=== PATIENT | male | born 1935 | race African-American/Black ===

== ENCOUNTER 2018-06-29 11:46 | Day surgery (SDC) | payer BC ==
--- NOTE | 2018-06-28 14:40 | HP ---
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 He is single. He dialyzes in [place] , Thursday and Thursday, followed by Dr. San. He had a hemodialysis catheter placed at [facility] 3 months ago and it became dislodged and Dr. San saw him and replaced it a week ago. He had a contrast venogram in left arm, revealing cephalic vein to be tortuous, basilic vein to be a possible useful. He is right handed. Right arm was not evaluated. PAST MEDICAL HISTORY: Hypertension, diabetes mellitus. TOBACCO: None. ALCOHOL: None. PAST SURGICAL HISTORY: Some sort of prostate procedure. MEDICATIONS: Colchicine, baby aspirin a day, amlodipine, finasteride, and atorvastatin. FAMILY HISTORY: Noncontributory. REVIEW OF SYSTEMS: Ten point noncontributory. PHYSICAL EXAMINATION: VITAL SIGNS: Weight 163 pounds, blood pressure 137/82, pulse 92, temperature 97.6 degrees. HEENT: Unremarkable. LUNGS: Clear to auscultation. CARDIAC: Regular rate and rhythm without murmur, rub, or gallop. ABDOMEN: Soft, nontender. Right IJ cuffed tunneled hemodialysis catheter in the right chest. Palpa ble radial arteries and ulnar arteries bilaterally. No visibly appreciable. ASSESSMENT AND PLAN: 1. New dialysis patient, last 3 months, has had a catheter last three months and has required replac ement on one occasion. We will plan placement of right arm fistula. Risk of an infection, bleeding, reoperation, possibility of the prosthetic graft discussed. Risk and benefits discussed. Questions answered. 2. Diabetes mellitus. 3. Hypertension. 4. End-stage renal disease, on maintenance dialysis Thursday, Thursday, and Thursday.
[2018-06-29 12:41] LABS: #Eosinphils 0.4 thou/uL (0.0-0.7); #Lymphocytes 2.4 thou/uL (1.20-3.40); #Neutrophils 4.6 thou/uL (1.40-6.50); %Basophils 0.6 % (0.0-1.0); %Eosinophils 4.9 % (0.0-10.0); %Lymphocytes 28.2 % (21.0-51.0); %Monocytes 11.8 % (0.0-10.0); %Neutrophils 54.5 % (42.0-75.0); Hemoglobin 11.5 g/dL (14.0-18.0); Mean Corpuscular HGB CONC 31.8 g/dL (32.0-36.0); Mean Corpuscular Hemoglobin 31.5 pg (27.0-31.0); Mean Corpuscular Volume 99.2 fL (78.0-98.0); Mean Platelet Volume 7.1 fL (7.4-10.4); Platelet Count 253 thou/uL (130-400); RBC Distribution Width 15.3 % (11.5-14.5); Red Blood Cell (RBC) Count 3.65 mill/uL (4.70-6.10); White Blood Cell (WBC) Count 8.4 thou/uL (4.8-10.8)
[2018-06-29 12:59] LABS: Anion Gap 15 mmol/L (10-20); BUN (Urea Nitrogen) 31 mg/dL (8.4-25.7); Calc. Creatinine Clearance 0 mL/min (70-130); Calcium 9.8 mg/dL (7.8-10.44); Carbon Dioxide 25 mmol/L (23-31); Chloride 105 mmol/L (98-107); Estimated GFR-MDRD 16; Glucose 85 mg/dL (83-110); Potassium 4.1 mmol/L (3.5-5.1); Sodium 141 mmol/L (136-145)
[2018-06-29] MEDS ORDERED: Midazolam HCl 2 mg/2 ml Vial ONE (13:22)
[2018-06-29] MEDS ORDERED: Fentanyl 100 MCG/2 ML VIAL ONE ×2 (13:23→13:38)
[2018-06-29] MEDS ORDERED: Bupivacaine HCl 0.5%/Epinephrine 1:200,000/PF 30 ml Vial ONE ×2 (13:35→13:40)
[2018-06-29] MEDS ORDERED: Protamine Sulfate 50 MG/5 ML VIAL ONE (13:35)
[2018-06-29] MEDS ORDERED: Lidocaine 2% PF Inj 2 ML VIAL ONE (13:35)
[2018-06-29] MEDS ORDERED: Heparin 5,000 UNITS/ML VIAL ONE (13:35)
[2018-06-29] MEDS ORDERED: Propofol 1,000 MG/100 ML VIAL IV ONE (13:39)
[2018-06-29] MEDS ORDERED: Phenylephrine HCL 10 MG/ML VIAL ONE (13:46)
--- NOTE | 2018-06-29 15:47 | EKG ---
Test Reason : PREOP Blood Pressure : / mmHG Vent. Rate : 078 BPM Atrial Rate : 078 BPM P-R Int : 148 ms QRS Dur : 080 ms QT Int : 404 ms P-R-T Axes : 026 006 044 degrees QTc Int : 460 ms Normal sinus rhythm with sinus arrhythmia Prolonged QT Abnormal ECG When compared with ECG of 26-JAN-2015 12:43, QT has lengthened Confirmed by STIVEN BRITTON, SrFancisco ([id number]) on 06/29/2018 3:46:38 PM Referred By: VICTOR MANUEL Confirmed By:DR. Fidel SALEEM MD
[2018-06-29] MEDS ORDERED: Heparin 10,000 UNITS/ 10 ML VIAL ONE (16:08)
--- NOTE | 2018-06-30 01:36 | OP ---
DATE OF SERVICE: 06/29/2018 PREOPERATIVE DIAGNOSIS: End-stage renal disease. POSTOPERATIVE DIAGNOSIS: End-stage renal disease. PROCEDURE: Right Orion fistula, 4 mm coronary dilator. SURGEON: Wong Warren M.D. ANESTHESIA: Regional TIVA. PROCEDURE: The patient was taken to the operating room where under regional anesthesia, right upper extremity was prepped with ChloraPrep, draped in routine fashion. The patient had an apparent good c ephalic vein at the wrist, right. Incision was made between the cephalic vein and radial artery ____ _ cephalic vein dissected free. The patient was given 6000 units of heparin intravenously. After ad equate circulation time, the radial artery was clamped proximally and distally. Branches divided bet ween 4-0 silk ties and clips and longitudinal arteriotomy made sharply and elongated with Ambriz sciss ors for a 2.5 to 3 cm anastomosis. The cephalic vein had been ligated on the hand side, spatulated a nd interrogated with coronary dilators, passing coronary dilators from a 2 mm to a 4 mm dilator witho ut obstruction throughout its length. It was flushed with heparinized saline solution and vein spatu lated and end vein to radial artery anastomosis created with continuous suture of 6-0 Prolene. After completion of anastomosis, vascular clamps were released and there was good flow in the fistul a evident by Doppler interrogation outflow. The patient given 25 mg protamine intravenously by Leisa garcía. Good hemostasis noted. Subcutaneous tissues approximated with 3-0 Monocryl, skin with subder mal 4-0 Monocryl and DermaGlue applied.
== END 2018-06-29 16:33 | disposition home or self-care (01) ==
LOC: SDC 11:46
PROVIDERS: ATTEND Specialist
PROC: 031B0ZF Bypass Right Radial Artery to Lower Arm Vein, Open Approach (ICD-10-PCS; principal; 2018-06-29)
DX: I12.0 Hypertensive chronic kidney disease with stage 5 chronic kidney disease or end stage renal disease (principal); E11.22 Type 2 diabetes mellitus with diabetic chronic kidney disease; N18.6 End stage renal disease; Z79.82 Long term (current) use of aspirin; Z79.899 Other long term (current) drug therapy; Z91.030 Bee allergy status
CPT/HCPCS: 80048; 85025; 93005; 93010; J0670; J1644; J2250; J2370; J2704; J2720; J3010

== ENCOUNTER 2018-08-31 14:03 | Day surgery (SDC) | payer MEDICARE, BC ==
[2018-08-30 18:06] VITALS: BMI 24.9
[2018-08-31 09:18] LABS: Hemoglobin 11.8 g/dL (14.0-18.0)
[2018-08-31 09:34] LABS: Anion Gap 19 mmol/L (10-20); Carbon Dioxide 20 mmol/L (23-31); Chloride 106 mmol/L (98-107); Potassium 4.7 mmol/L (3.5-5.1); Sodium 140 mmol/L (136-145)
[2018-08-31] MEDS ORDERED: Bupivacaine HCl 0.5%/Epinephrine 1:200,000/PF 30 ml Vial ONE (14:32)
[2018-08-31] MEDS ORDERED: Heparin 0 ML ONE (14:32)
[2018-08-31] MEDS ORDERED: Sodium Chloride 0.9% 10 ML ONE (14:32)
[2018-08-31] MEDS ORDERED: Lidocaine 2% PF 5 ML VIAL ONE (14:32)
[2018-08-31] MEDS ORDERED: Heparin 10,000 UNITS/1 ML VIAL ONE (14:34)
--- NOTE | 2018-08-31 16:19 | SPC ---
RIGHT UPPER EXTREMITY FISTULOGRAM WITH ULTRASOUND GUIDANCE TO OBTAIN ACCESS: COMPARISON: None. FINDINGS: Unsuccessful right upper extremity fistulogram. Despite multiple successful attempts to access the v enous outflow tract, the 0.018 wire could not be threaded sufficiently to allow a 4 German sheath to be placed over the wire. Multiple attempts were made. There were no immediate post procedural compl ications. TECHNIQUE: Consent obtained to performed a right upper extremity fistulogram. The right arm was prepped and mora ped in a sterile fashion. Lidocaine 1% buffered with sodium bicarbonate was used for local anesthesi a. Under sonographic guidance, a micropuncture needle was used to cannulate the proximal venous outf low tract. There was prompt flash of blood into the hub of the needle. Attempts were made to pass a 0.018 guidewire, which were essentially unsuccessful. A portion of the wire would advance to the di stal forearm; however, a wire would not further advance. Despite multiple attempts, the wire would n ot advance appropriately to allow the 4 German sheath to be placed. Therefore, the study was termina mak. There were no immediate post procedure complications. IMPRESSION: Unsuccessful right upper extremity fistulogram. The results of the study were discussed with Dr. Warren on 08/31/2018 at 11:00 a.m. CODE CR POS: [facility]
[2018-08-31] MEDS ORDERED: PROPOFOL 200 MG/20 ML VIAL ONE (16:27)
[2018-08-31] MEDS ORDERED: Lidocaine 1% PF 5 ML VIAL ONE (16:27)
--- NOTE | 2018-08-31 19:17 | RAD ---
FRONTAL VIEW CHEST: 08/31/18 COMPARISON: 05/30/17. INDICATION: Dialysis catheter placement. FINDINGS: A right sided tunneled vascular catheter is present with tip overlying the right atrium. There is no postprocedure pneumothorax visualized. The left costophrenic sulcus is partially obscured by mild ple ural based density. The cardiomediastinal silhouette is similar appearing. IMPRESSION: 1. Right sided tunneled vascular catheter placement, without evidence of postprocedure pneumotho rax. 2. Mild pleural based density at the inferior left chest with partial obscuration of the left co stophrenic sulcus. This could relate to small volume pleural fluid versus pleural thickening. POS: [facility]
--- NOTE | 2018-09-02 07:30 | OP ---
DATE OF PROCEDURE: 08/31/2018 PREOPERATIVE DIAGNOSES: End-stage renal disease; dysfunctional right arm Orion fistula, status post intervention where it could not be cannulated or wired; dysfunctional hemodialysis catheter, right internal jugular very positionable, unreliable. POSTOPERATIVE DIAGNOSES: End-stage renal disease; dysfunctional right arm Orion fistula, status post intervention where it could not be cannulated or wired; dysfunctional hemodialysis catheter, right internal jugular very positionable, unreliable. PROCEDURES PERFORMED: Removal of old right internal jugular cuffed-tunneled hemodialysis catheter and placement of new right internal jugular hemodialysis catheter, fluoroscopy use. ANESTHESIA: TIVA, local, 0.5% Marcaine with epinephrine 30 mL mixed with xylocaine 10 mL. DESCRIPTION OF PROCEDURE: The patient was taken to the operating room where under intravenous sedation, alcohol prep was used in the exit site of the old hemodialysis catheter, anesthetized with local anesthetic mixture, and catheter and cuff freed from the tunnel and then the neck and chest and cath were prepared with ChloraPrep and draped in routine fashion. Local anesthetic was infiltrated in the skin and subcutaneous tissue about the operative site. Incision was made over the neck incision and the catheter dissected free and pulled up into this wound, clamped, and divided, and the old cath removed and the site reprepped with ChloraPrep. He had a new exit site created with an 11-blade scalpel. A cuffed-tunneled hemodialysis catheter was placed, placing a new cuff beneath the catheter exit site, secured the catheter with 2 interrupted sutures of 3-0 nylon. A Biopatch sterile dressing was applied. Dilator and peel away sheath placed over the J-wire, placed through the catheter into the superior vena cava, removing the old catheter, placing the dilator and peel away sheath, and removing the dilator and J-wire, and then the new catheter placed with a peel away sheath in the superior vena cava, removing the peel away sheath and platysma approximated with 4-0 Monocryl, skin with subdural 4-0 Monocryl and [place] glue applied. Each port aspirated off blood, flushed with saline solution, and heparinized saline solution and heparinized saline solution 1000 units heparin per mL indicating volume per port. Fluoroscopic images revealed good alignment and placement. The patient had a fistulogram this morning revealing that the outflow to the Orion fistula was impaired. Ultrasound vein mapping of both arms would be attempted prior to going home and on 09/07/2018, outpatient new fistula placed probably in his right arm, possibly left arm. Job ID: [id number]
== END 2018-08-31 16:15 | disposition home or self-care (01) ==
LOC: SDC 14:03
PROVIDERS: ATTEND Specialist
PROC: 0J2SXYZ Change Other Device in Head and Neck Subcutaneous Tissue and Fascia, External Approach (ICD-10-PCS; principal; 2018-08-31)
PROC: B51W1ZZ Fluoroscopy of Dialysis Shunt/Fistula using Low Osmolar Contrast (ICD-10-PCS; 2018-08-31)
DX: T82.41XA Breakdown (mechanical) of vascular dialysis catheter, initial encounter (principal); T82.510A Breakdown (mechanical) of surgically created arteriovenous fistula, initial encounter; N18.6 End stage renal disease; Z79.82 Long term (current) use of aspirin; Z79.899 Other long term (current) drug therapy; Z88.2 Allergy status to sulfonamides; Z91.030 Bee allergy status; Z99.2 Dependence on renal dialysis
CPT/HCPCS: 36581; 36901; 71045; 80051; 85014; 85018; C1752; C1769; 36415; J0670; J1642; J1644; J2001; J2704

== ENCOUNTER 2018-09-07 05:53 | Day surgery (SDC) | payer MEDICARE, BC ==
[2018-09-07] MEDS ORDERED: Heparin 10,000 UNITS/ 10 ML VIAL ONE ×3 (07:17→20:36)
[2018-09-07] MEDS ORDERED: Midazolam HCl 2 mg/2 ml Vial ONE (14:49)
[2018-09-07] MEDS ORDERED: Fentanyl 100 MCG/2 ML VIAL ONE ×2 (14:49→17:52)
[2018-09-07] MEDS ORDERED: Bupivacaine HCl 0.5%/Epinephrine 1:200,000/PF 30 ml Vial ONE ×2 (15:41→17:53)
[2018-09-07] MEDS ORDERED: ePHEDrine/0.9% NaCl/PF SYRINGE 50 mg/10 ml ONE (16:06)
[2018-09-07] MEDS ORDERED: Ondansetron PF 4 MG/2 ML Vial ONE (16:06)
[2018-09-07] MEDS ORDERED: PROPOFOL 200 MG/20 ML VIAL ONE (16:06)
[2018-09-07] MEDS ORDERED: Lidocaine 1% PF 5 ML VIAL ONE (16:06)
[2018-09-07] MEDS ORDERED: Heparin 5,000 UNITS/ML VIAL ONE (17:53)
[2018-09-07] MEDS ORDERED: Protamine Sulfate 50 MG/5 ML VIAL ONE (17:53)
[2018-09-07] MEDS ORDERED: Lidocaine 2% PF 5 ML VIAL ONE (17:53)
[2018-09-07] MEDS ORDERED: CEFAZOLIN 2 GM/50 ML BAG ONE (18:08)
--- NOTE | 2018-09-08 03:27 | OP ---
DATE OF PROCEDURE: 09/07/2018 PREOPERATIVE DIAGNOSIS: End-stage renal disease with thrombosed right arm Orion fistula. POSTOPERATIVE DIAGNOSIS: End-stage renal disease with thrombosed right arm Orion fistula. PROCEDURE PERFORMED: Exploration of left forearm. FINDINGS: Veins inadequate, occluded cephalic vein in distal upper arm. Left upper arm PTFE tapered 4T07 graft to brachial artery, which was of excellent caliber above the antecubital fossa to the axillary vein which was of excellent caliber. ANESTHESIA: Regional TIVA. DESCRIPTION OF PROCEDURE: The patient was taken to the operating room where under intravenous sedation and regional anesthesia, left upper extremity was clipped, prepared with ChloraPrep, and draped in routine fashion. Incision was made longitudinally at proximal volar forearm below the antecubital fossa, carried down through skin and subcutaneous tissue. Antecubital vein noted to be of adequate size near the antecubital fossa and then a single branch into an adequate size cephalic vein. The perforating branch was dissected free. Branches were divided between clips and 4-0 silk ties and spatulated over branch points and interrogated with coronary dilators, placing coronary dilators from 2 mm to 2.5 mm with some restriction in the hadoop admin which required elongation and spatulation. I then placed coronary dilators more proximally in the junction distal mid third upper arm. Cephalic vein was occluded. The vein was clipped. Subcutaneous tissue was approximated with 3-0 Monocryl, skin with subdermal 4-0 Monocryl, and [place] glue applied. Incision was made above the antecubital fossa with brachial artery longitudinally, carried through skin, subcutaneous tissue, deep fascia, identifying the brachial artery, it was of excellent caliber. It was dissected free, surrounded with silastic vessel loop. Incision was made in the left axillary longitudinally, carried through skin, subcutaneous tissue, deep fascia, identifying the a very large axillary vein. It was dissected free and controlled proximally and distally with silastic Ambriz loops. The patient was given 6000 units of heparin intravenously after Elidia Wick tunneler was used to tunnel a tapered graft. The 4 mm end of the tapered graft was anastomosed to the brachial artery with continuous suture of 6-0 Prolene after gaining proximal and distal control with vascular clamps in order to make a longitudinal arteriotomy for 2.5 cm anastomosis. Once anastomosis was completed, vascular control was released. There was good flow in the graft and vascular clamp placed across the graft and Surgicel was placed around the arterial anastomosis and attention turned to the axilla. Axillary vein controlled proximally and distally with silastic Ambriz loops and longitudinal venotomy made sharply and elongated with Ambriz scissors for a 3 cm anastomosis using stay sutures of 6-0 Prolene to hold the vein open and graft and tailored accordingly for anastomosis and end graft to side axillary vein anastomosis was created with continuous suture of 6-0 Prolene. After completing the anastomosis, vascular arterial inflow was released. There was good flow. Venous outflow was released and there were good hemostasis in the anastomosis gained with Surgicel and local pressure. The patient was given 25 mg of protamine intravenously. Subcutaneous tissue was approximated with 3-0 Monocryl, skin with subdermal 4-0 Monocryl, and [place] glue applied. Job ID: [id number]
== END 2018-09-07 21:05 | disposition home or self-care (01) ==
LOC: SDC 05:53
PROVIDERS: ATTEND Specialist
PROC: 03180JD Bypass Left Brachial Artery to Upper Arm Vein with Synthetic Substitute, Open Approach (ICD-10-PCS; principal; 2018-09-07)
DX: N18.6 End stage renal disease (principal); T82.868A Thrombosis due to vascular prosthetic devices, implants and grafts, initial encounter; Z88.2 Allergy status to sulfonamides; Z91.030 Bee allergy status; Z79.82 Long term (current) use of aspirin; Z79.899 Other long term (current) drug therapy; Z99.2 Dependence on renal dialysis
CPT/HCPCS: 36830; L8670; J0670; J1644; J2001; J2250; J2405; J2704; J2720; J3010

== ENCOUNTER 2019-09-20 06:34 | Day surgery (SDC) | payer MEDICARE, BC ==
[2019-09-19 12:47] VITALS: BMI 20.7
--- NOTE | 2019-09-20 09:29 | SPC ---
Dialysis graft fistulogram left upper extremity Sonographic guided vascular access left upper extremity HISTORY: Difficulty in access of left upper arm graft. Renal failure FINDINGS: After explaining the procedure and answering all questions, left upper extremity was preppe d and draped in usual sterile fashion. Sterile technique, buffered local anesthesia, sonographic guidance, and a 22-gauge needle were used to carefully access the peripheral portion of the left uppe r arm dialysis graft. 4 Swedish sheath was placed for imaging. Serial imaging showed the left upper arm dialysis graft to be widely patent. Venous outflow to the ax illary vein was patent without significant, small collaterals but no stenosis. Superior vena cava is patent. At the level of the distal humerus, there are 3 small outpouchings of contrast material consistent wi th the bruising from recent dialysis access. Attempts to reflux the arterial anastomosis were unsuccessful because of the vigorous arterial inflow . Sheath was removed and hemostasis obtained using direct pressure. Patient tolerated the procedure wel l and was eventually dismissed in good condition. Fluoroscopy time 0.8 minutes. IMPRESSION: Left upper extremity dialysis graft is widely patent. No evidence of stricture or thrombu s. Small residual defects in the peripheral portion of the graft were seen where there was recent dialys is access and a small amount of oozing of blood.
== END 2019-09-20 08:40 | disposition home or self-care (01) ==
LOC: SPEC 06:34
PROVIDERS: ATTEND Internal Medicine Nephrology
PROC: B51W1ZZ Fluoroscopy of Dialysis Shunt/Fistula using Low Osmolar Contrast (ICD-10-PCS; principal; 2019-09-20)
DX: I12.0 Hypertensive chronic kidney disease with stage 5 chronic kidney disease or end stage renal disease (principal); E11.22 Type 2 diabetes mellitus with diabetic chronic kidney disease; N18.6 End stage renal disease; E78.5 Hyperlipidemia, unspecified; K21.9 Gastro-esophageal reflux disease without esophagitis; M10.9 Gout, unspecified; Z79.899 Other long term (current) drug therapy; Z88.2 Allergy status to sulfonamides; Z91.030 Bee allergy status; Z99.2 Dependence on renal dialysis
CPT/HCPCS: 36901

== ENCOUNTER 2021-11-19 14:30 | Inpatient (IN) | payer MEDICARE, BC ==
[2021-11-19 16:25] LABS: #Eosinphils 0.4 thou/uL (0.0-0.7); #Lymphocytes 1.5 thou/uL (1.20-3.40); #Monocytes 0.9 thou/uL (0.11-0.59); #Neutrophils 6.8 thou/uL (1.40-6.50); %Basophils 0.5 % (0.0-1.0); %Eosinophils 3.7 % (0.0-10.0); %Lymphocytes 15.6 % (21.0-51.0); %Monocytes 9.1 % (0.0-10.0); %Neutrophils 71.1 % (42.0-75.0); Hemoglobin 12.4 g/dL (14.0-18.0); Mean Corpuscular HGB CONC 31.9 g/dL (32.0-36.0); Mean Corpuscular Hemoglobin 31.8 pg (27.0-31.0); Mean Corpuscular Volume 99.6 fL (78.0-98.0); Platelet Count 204 thou/uL (130-400); RBC Distribution Width 15.9 % (11.5-14.5); White Blood Cell (WBC) Count 9.6 thou/uL (4.8-10.8)
[2021-11-19 16:37] LABS: Actual Bicarbonate (HCO3v) 27 mEq/L (22-28); Analyzer IN Cardio ER; Base Excess -0.3 mEq/L (-2.0 to +3.0); Chloride (VBG) 102 mmol/L (98-106); Hemoglobin (Hb) 13.5 g/dL (12.6-17.4); Potassium (VBG) 3.71 mmol/L (3.70-5.30); Sodium 140.9 mmol/L (133-146); pH (venous) 7.32 (7.32-7.43)
[2021-11-19 16:46] LABS: ALT (SGPT) 17 U/L (8-55); AST (SGOT) 23 U/L (5-34); Albumin 4.2 g/dL (3.4-4.8); Alkaline Phosphatase 50 U/L (40-110); Anion Gap 16 mmol/L (10-20); BUN (Urea Nitrogen) 24 mg/dL (8.4-25.7); Bilirubin, Total 0.4 mg/dL (0.2-1.2); Calc. Creatinine Clearance 0 mL/min (70-130); Calcium 10.7 mg/dL (7.8-10.44); Carbon Dioxide 25 mmol/L (23-31); Chloride 102 mmol/L (98-107); Globulin 3.2 g/dL (2.4-3.5); Glucose 107 mg/dL (83-110); Lipase 34 U/L (8-78); Magnesium 2.3 mg/dL (1.6-2.6); Potassium 3.7 mmol/L (3.5-5.1); Protein, Total 7.4 g/dL (5.8-8.1); Sodium 139 mmol/L (136-145)
[2021-11-19 17:32] LABS: CKMB 1.3 ng/mL (0-6.6)
[2021-11-19 18:54] LABS: Bacteria/HPF None Seen HPF (None Seen); Bilirubin Negative (Negative); Blood, Urine Trace (Negative); Clarity Clear (Clear); Glucose, Urine (Dipstick) 70 mg/dL (Negative); Ketone, Urine Negative (Negative); Leukocyte Negative Leu/uL (Negative); Nitrite Negative (Negative); Protein, Urine (Dipstick) 300 mg/dL (Neg-Trace); RBC/HPF 0-3 HPF (0-3); Specific Gravity, Urine 1.012 (1.002-1.036); Squamous Epithelial 0-3 HPF (0-3); Urobilinogen Normal mg/dL (Less than 2); WBC/HPF 0-3 HPF (0-3)
[2021-11-19 19:36] LABS: SARS-CoV-2 NAA Rapid Test Not Detected (NotDetected)
[2021-11-19] MEDS ORDERED: hydrALAZINE 20 MG/ML VIAL ONE (19:49)
[2021-11-19] MEDS ORDERED: Nitroglycerin 2% Ointment 1 INCH/1 GM Packet ONE (19:49)
[2021-11-19] MEDS ORDERED: Acetaminophen 650 MG Suppository PR PRN (20:50)
[2021-11-19] MEDS ORDERED: Ondansetron PF 4 MG/2 ML Vial ONE (21:12)
[2021-11-19 21:27] LABS: Phosphorus 4.5 mg/dL (2.3-4.7)
[2021-11-19] MEDS: Heparin 5,000 UNITS/ML VIAL SC SCH (23:00)
[2021-11-19] MEDS: hydrALAZINE 20 MG/ML VIAL SLOW IVP PRN (23:13)
[2021-11-20] MEDS ORDERED: Ondansetron ODT 4 MG TAB ONE (00:42)
[2021-11-20] MEDS: Ondansetron ODT 4 MG TAB PO PRN ×2 (00:43→15:38)
[2021-11-20 06:16] LABS: #Lymphocytes 1.3 thou/uL (1.20-3.40); #Monocytes 0.8 thou/uL (0.11-0.59); #Neutrophils 6.8 thou/uL (1.40-6.50); %Eosinophils 0.2 % (0.0-10.0); %Neutrophils 76.8 % (42.0-75.0); Hemoglobin 12.1 g/dL (14.0-18.0); Mean Corpuscular HGB CONC 32.2 g/dL (32.0-36.0); Mean Corpuscular Hemoglobin 31.9 pg (27.0-31.0); Mean Corpuscular Volume 98.9 fL (78.0-98.0); Mean Platelet Volume 8.3 fL (7.4-10.4); Platelet Count 208 thou/uL (130-400); RBC Distribution Width 15.9 % (11.5-14.5); Red Blood Cell (RBC) Count 3.81 mill/uL (4.70-6.10); White Blood Cell (WBC) Count 8.9 thou/uL (4.8-10.8)
[2021-11-20 06:38] LABS: Anion Gap 14 mmol/L (10-20); BUN (Urea Nitrogen) 29 mg/dL (8.4-25.7); Calc. Creatinine Clearance 0 mL/min (70-130); Calcium 10.7 mg/dL (7.8-10.44); Carbon Dioxide 26 mmol/L (23-31); Chloride 104 mmol/L (98-107); Glucose 100 mg/dL (83-110); Sodium 140 mmol/L (136-145)
[2021-11-20] MEDS: hydrALAZINE 20 MG/ML VIAL SLOW IVP PRN (06:53)
[2021-11-20] MEDS ORDERED: Non-Formulary Item 1 EACH (Pantoprazole Sodium [Protonix] 20 MG Tablet.Dr) PO SCH (09:00)
[2021-11-20] MEDS ORDERED: Amlodipine 10 MG TAB PO SCH (09:00)
[2021-11-20 09:53] LABS: Vitamin D, 25 Hydroxy 21.1 ng/ml (> 30.0)
[2021-11-20 09:58] LABS: Free T4 (Free Thyroxine) 1.18 ng/dL (0.70-1.48); Thyroid Stimulating Hormone 1.1481 uIU/mL (0.35-4.94)
[2021-11-20 10:00] LABS: Vitamin B12 Greater than 2000 pg/mL (211-911)
[2021-11-20] MEDS ORDERED: Acetaminophen 325 MG TAB ONE (10:24)
[2021-11-20] MEDS ORDERED: Amlodipine 5 MG TAB ONE (10:24)
[2021-11-20] MEDS: Heparin 5,000 UNITS/ML VIAL SC SCH ×3 (10:54→21:33)
[2021-11-20] MEDS: Amlodipine 5 MG TAB PO SCH (10:55)
[2021-11-20] MEDS: Atorvastatin Calcium 40 MG TAB PO SCH (10:55)
[2021-11-20] MEDS: Acetaminophen 325 MG TAB PO PRN ×2 (10:55→21:33)
[2021-11-20] MEDS: Finasteride 5 MG TAB PO SCH (10:55)
[2021-11-20 13:45] LABS: HBSAg Index 0.28 S/CO (0-0.99); Hep B Surf Ag Non-Reactive S/CO (NonReactive)
[2021-11-20 13:49] LABS: HBSAB Concentration 134.87 mIU/mL; Hep B Surf AB Reactive (NonReactive)
[2021-11-20 14:14] VITALS: BMI 20.4
[2021-11-20] MEDS: Ondansetron PF 4 MG/2 ML Vial IVP PRN (14:31)
[2021-11-21] MEDS: hydrALAZINE 20 MG/ML VIAL SLOW IVP PRN ×2 (00:19→09:05)
[2021-11-21] MEDS: Amlodipine 5 MG TAB PO SCH (09:03)
[2021-11-21] MEDS: Atorvastatin Calcium 40 MG TAB PO SCH (09:04)
[2021-11-21] MEDS: Finasteride 5 MG TAB PO SCH (09:04)
[2021-11-21] MEDS: Labetalol HCl 100 MG TAB PO SCH ×3 (09:04→20:47)
[2021-11-21] MEDS: Heparin 5,000 UNITS/ML VIAL SC SCH ×4 (09:05→21:26)
[2021-11-21] MEDS: Ondansetron ODT 4 MG TAB PO PRN (09:26)
[2021-11-21] MEDS: Guaifenesin DM 100-10/5 ML UDCUP PO PRN (12:50)
[2021-11-21] MEDS: Cholecalciferol 1,000 UNITS (25 MCG) TAB PO SCH (20:47)
[2021-11-22 04:49] LABS: ALT (SGPT) 11 U/L (8-55); AST (SGOT) 21 U/L (5-34); Albumin 3.5 g/dL (3.4-4.8); Alkaline Phosphatase 41 U/L (40-110); Anion Gap 15 mmol/L (10-20); BUN (Urea Nitrogen) 30 mg/dL (8.4-25.7); Bilirubin, Total 0.4 mg/dL (0.2-1.2); Calc. Creatinine Clearance 7 mL/min (70-130); Carbon Dioxide 27 mmol/L (23-31); Chloride 100 mmol/L (98-107); Globulin 2.5 g/dL (2.4-3.5); Glucose 90 mg/dL (83-110); Magnesium 2.2 mg/dL (1.6-2.6); Phosphorus 5.7 mg/dL (2.3-4.7); Sodium 138 mmol/L (136-145)
[2021-11-22] MEDS: Atorvastatin Calcium 40 MG TAB PO SCH (08:33)
[2021-11-22] MEDS: Heparin 5,000 UNITS/ML VIAL SC SCH ×3 (08:33→20:57)
[2021-11-22] MEDS: Finasteride 5 MG TAB PO SCH (08:34)
[2021-11-22] MEDS: Labetalol HCl 100 MG TAB PO SCH ×3 (08:34→20:53)
[2021-11-22] MEDS: Amlodipine 5 MG TAB PO SCH (08:35)
[2021-11-22] MEDS: Ascorbic Acid 500 mg Chewable Tablet PO SCH (08:38)
[2021-11-22] MEDS: Acetaminophen 325 MG TAB PO PRN (15:57)
[2021-11-22] MEDS: Guaifenesin DM 100-10/5 ML UDCUP PO PRN (15:58)
[2021-11-22] MEDS: Cholecalciferol 1,000 UNITS (25 MCG) TAB PO SCH (20:53)
[2021-11-23 04:37] LABS: ALT (SGPT) 11 U/L (8-55); AST (SGOT) 28 U/L (5-34); Albumin 3.4 g/dL (3.4-4.8); Alkaline Phosphatase 43 U/L (40-110); Anion Gap 14 mmol/L (10-20); BUN (Urea Nitrogen) 19 mg/dL (8.4-25.7); Bilirubin, Total 0.4 mg/dL (0.2-1.2); Calc. Creatinine Clearance 9 mL/min (70-130); Calcium 9.5 mg/dL (7.8-10.44); Carbon Dioxide 27 mmol/L (23-31); Chloride 99 mmol/L (98-107); Globulin 2.7 g/dL (2.4-3.5); Glucose 95 mg/dL (83-110); Protein, Total 6.1 g/dL (5.8-8.1); Sodium 136 mmol/L (136-145)
[2021-11-23] MEDS: Ascorbic Acid 500 mg Chewable Tablet PO SCH (08:31)
[2021-11-23] MEDS: Guaifenesin DM 100-10/5 ML UDCUP PO PRN (08:31)
[2021-11-23] MEDS: Finasteride 5 MG TAB PO SCH (08:31)
[2021-11-23] MEDS: Atorvastatin Calcium 40 MG TAB PO SCH (08:31)
[2021-11-23] MEDS: Amlodipine 5 MG TAB PO SCH (08:31)
[2021-11-23] MEDS: Labetalol HCl 100 MG TAB PO SCH ×3 (08:32→20:44)
[2021-11-23] MEDS: Heparin 5,000 UNITS/ML VIAL SC SCH ×3 (08:32→20:48)
[2021-11-23] MEDS: Cholecalciferol 1,000 UNITS (25 MCG) TAB PO SCH (20:47)
[2021-11-24 05:12] LABS: ALT (SGPT) 10 U/L (8-55); AST (SGOT) 23 U/L (5-34); Albumin 3.4 g/dL (3.4-4.8); Alkaline Phosphatase 41 U/L (40-110); Anion Gap 18 mmol/L (10-20); BUN (Urea Nitrogen) 30 mg/dL (8.4-25.7); Bilirubin, Total 0.4 mg/dL (0.2-1.2); Calc. Creatinine Clearance 6 mL/min (70-130); Calcium 9.5 mg/dL (7.8-10.44); Carbon Dioxide 25 mmol/L (23-31); Chloride 98 mmol/L (98-107); Globulin 2.6 g/dL (2.4-3.5); Glucose 96 mg/dL (83-110); Potassium 3.9 mmol/L (3.5-5.1); Sodium 137 mmol/L (136-145)
[2021-11-24 06:48] LABS: #Eosinphils 0.5 thou/uL (0.0-0.7); #Monocytes 1.1 thou/uL (0.11-0.59); %Basophils 0.1 % (0.0-1.0); %Eosinophils 5.9 % (0.0-10.0); %Lymphocytes 23.4 % (21.0-51.0); %Monocytes 12.3 % (0.0-10.0); %Neutrophils 58.2 % (42.0-75.0); Hemoglobin 10.9 g/dL (14.0-18.0); Mean Corpuscular HGB CONC 31.2 g/dL (32.0-36.0); Mean Corpuscular Hemoglobin 31.1 pg (27.0-31.0); Mean Platelet Volume 8.7 fL (7.4-10.4); Platelet Count 187 thou/uL (130-400); RBC Distribution Width 15.8 % (11.5-14.5); White Blood Cell (WBC) Count 8.7 thou/uL (4.8-10.8)
[2021-11-24] MEDS: Amlodipine 5 MG TAB PO SCH (08:47)
[2021-11-24] MEDS: Heparin 5,000 UNITS/ML VIAL SC SCH ×3 (08:47→21:12)
[2021-11-24] MEDS: Guaifenesin DM 100-10/5 ML UDCUP PO PRN (08:47)
[2021-11-24] MEDS: Finasteride 5 MG TAB PO SCH (08:47)
[2021-11-24] MEDS: Labetalol HCl 100 MG TAB PO SCH ×3 (08:47→21:09)
[2021-11-24] MEDS: Atorvastatin Calcium 40 MG TAB PO SCH (08:47)
[2021-11-24] MEDS: Ascorbic Acid 500 mg Chewable Tablet PO SCH (08:47)
[2021-11-24] MEDS: Acetaminophen 325 MG TAB PO PRN (14:20)
[2021-11-24] MEDS: Cholecalciferol 1,000 UNITS (25 MCG) TAB PO SCH (21:09)
[2021-11-25] MEDS: Guaifenesin DM 100-10/5 ML UDCUP PO PRN (05:09)
[2021-11-25 05:20] LABS: #Basophils 0.1 thou/uL (0.0-0.2); #Eosinphils 0.6 thou/uL (0.0-0.7); #Lymphocytes 2.1 thou/uL (1.20-3.40); #Monocytes 1.1 thou/uL (0.11-0.59); #Neutrophils 5.3 thou/uL (1.40-6.50); %Basophils 1.1 % (0.0-1.0); %Eosinophils 6.8 % (0.0-10.0); %Lymphocytes 22.3 % (21.0-51.0); %Monocytes 11.7 % (0.0-10.0); %Neutrophils 58.1 % (42.0-75.0); Hemoglobin 11.3 g/dL (14.0-18.0); Mean Corpuscular HGB CONC 31.4 g/dL (32.0-36.0); Mean Corpuscular Hemoglobin 32.1 pg (27.0-31.0); Mean Platelet Volume 8.1 fL (7.4-10.4); Platelet Count 189 thou/uL (130-400); RBC Distribution Width 15.9 % (11.5-14.5); Red Blood Cell (RBC) Count 3.53 mill/uL (4.70-6.10); White Blood Cell (WBC) Count 9.2 thou/uL (4.8-10.8)
[2021-11-25 05:47] LABS: ALT (SGPT) 10 U/L (8-55); AST (SGOT) 24 U/L (5-34); Albumin 3.4 g/dL (3.4-4.8); Alkaline Phosphatase 46 U/L (40-110); Anion Gap 19 mmol/L (10-20); BUN (Urea Nitrogen) 42 mg/dL (8.4-25.7); Bilirubin, Total 0.4 mg/dL (0.2-1.2); Calc. Creatinine Clearance 5 mL/min (70-130); Calcium 9.8 mg/dL (7.8-10.44); Carbon Dioxide 22 mmol/L (23-31); Chloride 99 mmol/L (98-107); Globulin 2.8 g/dL (2.4-3.5); Glucose 105 mg/dL (83-110); Iron 120 ug/dL (65-175); Iron Binding Capacity, Total 139 mcg/dL (261-462); Potassium 4.2 mmol/L (3.5-5.1); Protein, Total 6.2 g/dL (5.8-8.1); Sodium 136 mmol/L (136-145)
[2021-11-25 06:04] LABS: Iron 121 ug/dL (65-175); Iron Binding Capacity, Total 136 mcg/dL (261-462)
[2021-11-25] MEDS: Labetalol HCl 100 MG TAB PO SCH ×3 (08:50→20:47)
[2021-11-25] MEDS: Ascorbic Acid 500 mg Chewable Tablet PO SCH (08:50)
[2021-11-25] MEDS: Atorvastatin Calcium 40 MG TAB PO SCH (13:45)
[2021-11-25] MEDS: Heparin 5,000 UNITS/ML VIAL SC SCH ×3 (13:45→20:47)
[2021-11-25] MEDS: Amlodipine 5 MG TAB PO SCH (14:22)
[2021-11-25] MEDS: Finasteride 5 MG TAB PO SCH (14:25)
[2021-11-25] MEDS: Acetaminophen 325 MG TAB PO PRN (20:47)
[2021-11-25] MEDS: Cholecalciferol 1,000 UNITS (25 MCG) TAB PO SCH (20:47)
[2021-11-26] MEDS: Ondansetron ODT 4 MG TAB PO PRN (00:42)
[2021-11-26 06:57] LABS: #Eosinphils 0.5 thou/uL (0.0-0.7); #Lymphocytes 2.2 thou/uL (1.20-3.40); #Monocytes 0.9 thou/uL (0.11-0.59); #Neutrophils 5.2 thou/uL (1.40-6.50); %Basophils 0.5 % (0.0-1.0); %Eosinophils 5.4 % (0.0-10.0); %Lymphocytes 24.8 % (21.0-51.0); %Monocytes 10.6 % (0.0-10.0); %Neutrophils 58.8 % (42.0-75.0); Hemoglobin 11.4 g/dL (14.0-18.0); Mean Corpuscular Hemoglobin 32.1 pg (27.0-31.0); Platelet Count 192 thou/uL (130-400); RBC Distribution Width 15.7 % (11.5-14.5); Red Blood Cell (RBC) Count 3.54 mill/uL (4.70-6.10); White Blood Cell (WBC) Count 8.9 thou/uL (4.8-10.8)
[2021-11-26 07:13] LABS: Anion Gap 16 mmol/L (10-20); BUN (Urea Nitrogen) 29 mg/dL (8.4-25.7); Calc. Creatinine Clearance 9 mL/min (70-130); Calcium 9.9 mg/dL (7.8-10.44); Carbon Dioxide 28 mmol/L (23-31); Chloride 96 mmol/L (98-107); Glucose 92 mg/dL (83-110); Potassium 3.7 mmol/L (3.5-5.1); Sodium 136 mmol/L (136-145)
[2021-11-26] MEDS: Atorvastatin Calcium 40 MG TAB PO SCH (09:41)
[2021-11-26] MEDS: Finasteride 5 MG TAB PO SCH (09:41)
[2021-11-26] MEDS: Ascorbic Acid 500 mg Chewable Tablet PO SCH (09:41)
[2021-11-26] MEDS: Labetalol HCl 100 MG TAB PO SCH ×3 (09:41→21:45)
[2021-11-26] MEDS: Folic Acid 1 MG TAB PO SCH (09:42)
[2021-11-26] MEDS: Guaifenesin DM 100-10/5 ML UDCUP PO PRN ×2 (09:42→14:05)
[2021-11-26] MEDS: Heparin 5,000 UNITS/ML VIAL SC SCH ×3 (09:43→21:43)
[2021-11-26] MEDS: Amlodipine 5 MG TAB PO SCH (09:43)
[2021-11-26 11:47] LABS: SARS-CoV-2 PCR by NAA Not Detected (NotDetected)
[2021-11-26] MEDS: Cholecalciferol 1,000 UNITS (25 MCG) TAB PO SCH (21:43)
[2021-11-27 05:07] LABS: #Eosinphils 0.5 thou/uL (0.0-0.7); #Lymphocytes 2.4 thou/uL (1.20-3.40); #Neutrophils 5.8 thou/uL (1.40-6.50); %Basophils 0.1 % (0.0-1.0); %Lymphocytes 24.7 % (21.0-51.0); %Monocytes 10.6 % (0.0-10.0); %Neutrophils 59.6 % (42.0-75.0); Hemoglobin 10.7 g/dL (14.0-18.0); Mean Corpuscular HGB CONC 31.5 g/dL (32.0-36.0); Mean Corpuscular Hemoglobin 31.4 pg (27.0-31.0); Mean Corpuscular Volume 99.6 fL (78.0-98.0); Mean Platelet Volume 7.8 fL (7.4-10.4); Platelet Count 192 thou/uL (130-400); RBC Distribution Width 15.8 % (11.5-14.5); White Blood Cell (WBC) Count 9.8 thou/uL (4.8-10.8)
[2021-11-27 05:29] LABS: Anion Gap 17 mmol/L (10-20); BUN (Urea Nitrogen) 44 mg/dL (8.4-25.7); Calc. Creatinine Clearance 6 mL/min (70-130); Carbon Dioxide 27 mmol/L (23-31); Chloride 96 mmol/L (98-107); Glucose 90 mg/dL (83-110); Sodium 136 mmol/L (136-145)
[2021-11-27] MEDS: Amlodipine 5 MG TAB PO SCH (09:06)
[2021-11-27] MEDS: Finasteride 5 MG TAB PO SCH (09:07)
[2021-11-27] MEDS: Ascorbic Acid 500 mg Chewable Tablet PO SCH (09:07)
[2021-11-27] MEDS: Atorvastatin Calcium 40 MG TAB PO SCH (09:07)
[2021-11-27] MEDS: Folic Acid 1 MG TAB PO SCH (09:07)
[2021-11-27] MEDS: Heparin 5,000 UNITS/ML VIAL SC SCH ×3 (09:07→20:20)
[2021-11-27] MEDS: Labetalol HCl 100 MG TAB PO SCH ×3 (09:07→20:21)
[2021-11-27] MEDS: Guaifenesin DM 100-10/5 ML UDCUP PO PRN (16:40)
[2021-11-27] MEDS: Cholecalciferol 1,000 UNITS (25 MCG) TAB PO SCH (20:21)
[2021-11-28 05:07] LABS: Anion Gap 16 mmol/L (10-20); BUN (Urea Nitrogen) 24 mg/dL (8.4-25.7); Calc. Creatinine Clearance 10 mL/min (70-130); Calcium 9.5 mg/dL (7.8-10.44); Carbon Dioxide 24 mmol/L (23-31); Chloride 101 mmol/L (98-107); Glucose 103 mg/dL (83-110); Sodium 137 mmol/L (136-145)
[2021-11-28] MEDS: Ascorbic Acid 500 mg Chewable Tablet PO SCH (09:07)
[2021-11-28] MEDS: Amlodipine 5 MG TAB PO SCH (09:07)
[2021-11-28] MEDS: Finasteride 5 MG TAB PO SCH (09:08)
[2021-11-28] MEDS: Atorvastatin Calcium 40 MG TAB PO SCH (09:08)
[2021-11-28] MEDS: Folic Acid 1 MG TAB PO SCH (09:08)
[2021-11-28] MEDS: Heparin 5,000 UNITS/ML VIAL SC SCH ×3 (09:08→19:45)
[2021-11-28] MEDS: Labetalol HCl 100 MG TAB PO SCH ×3 (09:09→19:45)
[2021-11-28] MEDS: Cholecalciferol 1,000 UNITS (25 MCG) TAB PO SCH (19:45)
[2021-11-28] MEDS ORDERED: traMADol HCl 50 MG TAB PO SCH (20:15)
[2021-11-29] MEDS: Ascorbic Acid 500 mg Chewable Tablet PO SCH (08:36)
[2021-11-29] MEDS: Amlodipine 5 MG TAB PO SCH (08:37)
[2021-11-29] MEDS: Finasteride 5 MG TAB PO SCH (08:37)
[2021-11-29] MEDS: Labetalol HCl 100 MG TAB PO SCH ×3 (08:37→20:24)
[2021-11-29] MEDS: Folic Acid 1 MG TAB PO SCH (08:37)
[2021-11-29] MEDS: Atorvastatin Calcium 40 MG TAB PO SCH (08:37)
[2021-11-29] MEDS: Heparin 5,000 UNITS/ML VIAL SC SCH ×3 (08:37→20:25)
[2021-11-29] MEDS: Acetaminophen 325 MG TAB PO PRN (12:51)
[2021-11-29] MEDS: Cholecalciferol 1,000 UNITS (25 MCG) TAB PO SCH (20:25)
[2021-11-29] MEDS: Guaifenesin DM 100-10/5 ML UDCUP PO PRN (21:44)
[2021-11-30] MEDS: Ondansetron PF 4 MG/2 ML Vial IVP PRN (01:19)
[2021-11-30 05:17] LABS: Anion Gap 19 mmol/L (10-20); BUN (Urea Nitrogen) 57 mg/dL (8.4-25.7); Calc. Creatinine Clearance 6 mL/min (70-130); Calcium 9.9 mg/dL (7.8-10.44); Carbon Dioxide 23 mmol/L (23-31); Chloride 99 mmol/L (98-107); Glucose 89 mg/dL (83-110); Potassium 4.3 mmol/L (3.5-5.1); Sodium 137 mmol/L (136-145)
[2021-11-30] MEDS: Ascorbic Acid 500 mg Chewable Tablet PO SCH (08:32)
[2021-11-30] MEDS: Finasteride 5 MG TAB PO SCH (08:32)
[2021-11-30] MEDS: Folic Acid 1 MG TAB PO SCH ×2 (08:32→19:52)
[2021-11-30] MEDS: Acetaminophen 325 MG TAB PO PRN ×2 (08:33→14:08)
[2021-11-30] MEDS: Amlodipine 5 MG TAB PO SCH (08:33)
[2021-11-30] MEDS: Atorvastatin Calcium 40 MG TAB PO SCH (08:33)
[2021-11-30] MEDS: Labetalol HCl 100 MG TAB PO SCH (08:34)
[2021-11-30 09:53] LABS: Hemoglobin 8.9 g/dL (14.0-18.0); Platelet Count 206 thou/uL (130-400)
[2021-11-30 10:06] LABS: INR-International Normal Ratio 0.9; PTT 53.1 sec (22.9-36.1); Prothrombin Time 12.5 sec (12.0-14.7)
[2021-11-30] MEDS: Ondansetron ODT 4 MG TAB PO PRN (14:09)
[2021-11-30] MEDS ORDERED: Labetalol HCl 100 MG TAB PO SCH (15:00)
[2021-11-30] MEDS: Cholecalciferol 1,000 UNITS (25 MCG) TAB PO SCH (19:51)
[2021-11-30] MEDS: Docusate 100 MG CAP PO SCH (19:52)
[2021-11-30] MEDS: Guaifenesin DM 100-10/5 ML UDCUP PO PRN (22:47)
[2021-12-01 05:13] LABS: Hemoglobin 8.8 g/dL (14.0-18.0); Platelet Count 206 thou/uL (130-400)
[2021-12-01 05:30] LABS: Anion Gap 13 mmol/L (10-20); BUN (Urea Nitrogen) 33 mg/dL (8.4-25.7); Calc. Creatinine Clearance 9 mL/min (70-130); Calcium 9.6 mg/dL (7.8-10.44); Carbon Dioxide 28 mmol/L (23-31); Chloride 98 mmol/L (98-107); Glucose 86 mg/dL (83-110); Potassium 3.7 mmol/L (3.5-5.1); Sodium 135 mmol/L (136-145)
[2021-12-01] MEDS: Folic Acid 1 MG TAB PO SCH ×2 (08:32→20:45)
[2021-12-01] MEDS: Atorvastatin Calcium 40 MG TAB PO SCH (08:33)
[2021-12-01] MEDS: Finasteride 5 MG TAB PO SCH (08:34)
[2021-12-01] MEDS: Ascorbic Acid 500 mg Chewable Tablet PO SCH (08:35)
[2021-12-01] MEDS ORDERED: Amlodipine 5 MG TAB PO SCH (09:00)
[2021-12-01] MEDS: Acetaminophen 325 MG TAB PO PRN ×2 (11:23→18:24)
[2021-12-01] MEDS: Ondansetron ODT 4 MG TAB PO PRN (18:25)
[2021-12-01] MEDS ORDERED: EPOETIN ALFA-EPBX (ESRD) 3,000 UNIT/ML VIAL SC SCH (19:45)
[2021-12-01] MEDS ORDERED: EPOETIN ALFA-EPBX (ESRD) 2,000 UNIT/ML VIAL SC SCH (19:45)
[2021-12-01] MEDS ORDERED: Epoetin (ESRD) 20,000 UNITS/ML SC SCH (19:45)
[2021-12-01] MEDS: Cholecalciferol 1,000 UNITS (25 MCG) TAB PO SCH (20:45)
[2021-12-01] MEDS: Docusate 100 MG CAP PO SCH (20:46)
[2021-12-01] MEDS: Guaifenesin DM 100-10/5 ML UDCUP PO PRN (20:51)
[2021-12-02 04:57] LABS: Hemoglobin 8.8 g/dL (14.0-18.0); Platelet Count 210 thou/uL (130-400)
[2021-12-02 08:47] VITALS: TEMP 97
[2021-12-02] MEDS: Ascorbic Acid 500 mg Chewable Tablet PO SCH (09:08)
[2021-12-02] MEDS: Folic Acid 1 MG TAB PO SCH (09:08)
[2021-12-02] MEDS: Finasteride 5 MG TAB PO SCH (09:08)
[2021-12-02] MEDS: Atorvastatin Calcium 40 MG TAB PO SCH (09:08)
[2021-12-02 12:16] VITALS: BP 168/78
[2021-12-02] MEDS: Guaifenesin DM 100-10/5 ML UDCUP PO PRN (13:25)
[2021-12-08] MEDS ORDERED: EPOETIN ALFA-EPBX (ESRD) 3,000 UNIT/ML VIAL SC SCH (09:00)
[2021-12-08] MEDS ORDERED: EPOETIN ALFA-EPBX (ESRD) 2,000 UNIT/ML VIAL SC SCH (09:00)
== END 2021-12-02 17:10 | DRG 304 ==
LOC: ERS 14:30 → ERHOLD 19:50 → 2NO 20:03 → OBSVTOIN 11-20 16:57 → MSONC 11-24 12:24
PROVIDERS: ADMIT Student in an Organized Health Care Education/Training Program; ATTEND Internal Medicine
DX: I16.0 Hypertensive urgency (principal); N18.6 End stage renal disease; I50.33 Acute on chronic diastolic (congestive) heart failure; G93.40 Encephalopathy, unspecified; D62 Acute posthemorrhagic anemia; I13.2 Hypertensive heart and chronic kidney disease with heart failure and with stage 5 chronic kidney disease, or end stage renal disease; Z20.822 Contact with and (suspected) exposure to COVID-19; D63.1 Anemia in chronic kidney disease; K46.9 Unspecified abdominal hernia without obstruction or gangrene; E55.9 Vitamin D deficiency, unspecified; R41.0 Disorientation, unspecified; M79.81 Nontraumatic hematoma of soft tissue; E53.8 Deficiency of other specified B group vitamins; K57.90 Diverticulosis of intestine, part unspecified, without perforation or abscess without bleeding; E78.5 Hyperlipidemia, unspecified; N40.0 Benign prostatic hyperplasia without lower urinary tract symptoms; K40.90 Unilateral inguinal hernia, without obstruction or gangrene, not specified as recurrent; N28.1 Cyst of kidney, acquired; K21.9 Gastro-esophageal reflux disease without esophagitis; Z91.030 Bee allergy status; Z79.899 Other long term (current) drug therapy; Z90.79 Acquired absence of other genital organ(s); Z79.82 Long term (current) use of aspirin; Z99.2 Dependence on renal dialysis; Z87.442 Personal history of urinary calculi; Z88.2 Allergy status to sulfonamides; Z91.81 History of falling
CPT/HCPCS: 36415; 36416; 70450; 71045; 74176; 80048; 80053; 81003; 81015; 82306; 82550; 82553; 82607; 82746; 82805; 83540; 83550; 83690; 83735; 83880; 84100; 84145; 84439; 84443; 84481; 84484; 85014; 85018; 85025; 85049; 85610; 85730; 86706; 87040; 87149; 87340; 90935; 93005; 93306; 96374; 96375; 96376; G0257; G0378; J0360; J1644; J2405; Q0162; Q5105; U0002; U0003; U0005

== ENCOUNTER 2023-06-17 19:42 | Emergency (ER) | payer MEDICARE, BC ==
[2023-06-17 22:21] LABS: Chloride 106 mmol/L (98-107); Potassium 5.1 mmol/L (3.5-5.1); Sodium 139 mmol/L (136-145)
[2023-06-17 22:22] LABS: #Eosinphils 0.5 thou/uL (0.0-0.7); #Monocytes 1.9 thou/uL (0.11-0.59); #Neutrophils 7.2 thou/uL (1.40-6.50); %Basophils 0.3 % (0.0-1.0); %Eosinophils 3.8 % (0.0-10.0); %Lymphocytes 19.1 % (21.0-51.0); %Neutrophils 60.3 % (42.0-75.0); Hematocrit 39.4 % (42.0-52.0); Hemoglobin 12.3 g/dL (14.0-18.0); Mean Corpuscular HGB CONC 31.2 g/dL (32.0-36.0); Mean Corpuscular Hemoglobin 30.8 pg (27.0-31.0); Mean Corpuscular Volume 98.5 fl (78.0-98.0); Mean Platelet Volume 9.2 fL (7.4-10.4); Platelet Count 274 10x3/uL (130-400); RBC Distribution Width 17.7 % (11.5-14.5); White Blood Cell (WBC) Count 11.9 10x3/uL (4.8-10.8)
[2023-06-17 22:24] LABS: Bilirubin, Total 0.2 mg/dL (0.2-1.2)
== END 2023-06-17 20:55 | disposition home or self-care (01) ==
LOC: ERS 19:42
DX: S70.02XA Contusion of left hip, initial encounter (principal); I10 Essential (primary) hypertension; W18.30XA Fall on same level, unspecified, initial encounter
CPT/HCPCS: 36415; 74176; 80053; 85025